=== PATIENT | female | born 2000 | race Caucasian/White ===

== ENCOUNTER 2023-04-17 17:33 | Emergency (ER) | payer OTHER, SELFPAY ==
[2023-04-17 17:36] VITALS: BP 139/75; PULSE 84; RESP 19; TEMP 36.9; O2SAT 99; BMI 39.0
--- NOTE | 2023-04-17 18:57 | EDS_ITS ---
HPI History of Present Illness Chief Complaint: Other, Pain/Inj Detail of Chief Complaint: She was sent in for CAT scan of her neck. Informant: patient Onset/Context/Timing Onset: - (Patient had throat pain and swelling that started last week.) Context: Sudden Onset Timing: Continuous Quality: No longer has swelling. Location: Nonspecific cervical lymphadenopathy. Current Severity: Gone Maximum Severity: Moderate Worsened by: Nothing Relieved by: Nothing specific per patient Associated Symptoms Associated Symptoms: Did have a hoarse voice Narrative Narrative: Patient is a 22-year-old female who was sent to the ER for CAT scan of her neck. Patient scheduled for MRI of her neck. CT that was performed at [facility] was reviewed. The report by radiologist was reviewed. There was nonspecific cervical lymphadenopathy. They were not significant based on size or character. There were more nodes then 1 would expect. She did have a hoarse voice at that time she was placed on steroids. She states a rapid strep was not done. Blood work was done which was all normal. This was confirmed. Patient has no complaints at this time. She does not believe her neck is swollen. Prior similar symptoms: Yes Recent Illness/Hospitalization: Yes PFSH PFSH Allergy/AdvReac Type Severity Reaction Status Date / Time doxycycline AdvReac Upset Verified 04/17/23 17:36 Stomach naproxen AdvReac Angioedema Verified 04/17/23 17:36 no surgical history Social History (Updated 04/17/23 @ 18:[address] Mason Taylor MD) household members: family substance use type: does not use ROS ROS ED Constitutional Constitutional ED: Denies chills, fever(s), subjective, sweats or weight loss Eyes Eyes: Denies blurry vision, change in vision or diplopia ENT ENT ED: Denies ear pain, rhinorrhea or sore throat Cardiovascular Cardiovascular: Denies chest pain or palpitations Respiratory/Chest Respiratory/Chest: Denies cough, dyspnea or dyspnea on exertion Hematologic/Lymphatic Hematologic/Lymphatic: Reports systems reviewed and no addt'l complaints, except as documented Allergic/Immunologic Allergic/Immunologic ED: Denies mouth swelling, tongue swelling or urticaria EXAM Physical Exam Const Vital Signs: 04/17/23 17:36 Temperature 98.5 F Temperature Source Temporal Pulse Rate 84 Respiratory Rate 19 H Blood Pressure 139/75 H Blood Pressure Mean 96 Pulse Ox 99 Oxygen Delivery Method Room Air Positive well nourished, well developed and obese General Appearance ED: well developed and NAD; Negative for cyanotic, diaphoretic or pallor Nutritional Appearance: obese HEENT Reports moist mucous membranes HEENT Narrative: Posterior pharynx out erythema or exudate. Uvula is midline. There is no evidence of angioedema. There is no deviation with protrusion. Eyes PERRL and EOMs intact bilaterally General Eye ED: Negative for pale conjunctiva or scleral icterus Neck no lymphadenopathy, supple and no JVD Neck Narrative: Trachea is midline. There is no inspiratory stridor. There is no dysphonia. There is no carotid bruits. There is no palpable nodes. Resp normal respiratory effort Cardio regular rate and regular rhythm Neuro oriented x3, CN's II-XII intact bilaterally and no sensory deficits noted Sensorium / Orientation: alert Psych mental status grossly normal Skin no rashes or lesions noted, no wounds and skin turgor normal General Skin Exam: elasticity normal; Negative for jaundice or pallor MDM MDM MDM Narrative Medical decision making narrative: Patient had a CT of her neck 9 days ago. Because of concern for radiation of thyroid and an unremarkable exam this was not repeated. Patient's vitals are unremarkable. Patient is scheduled for an outpatient MRI. There is no indication for emergent CAT scan. Patient was informed of this. Patient be discharged home. History & Record Review Additional record(s) reviewed:: Prior outpatient record and Prior labs Discharge Plan Triage Chief Complaint: Other, Pain/Inj ED Provider: Mason Taylor Dx/Rx/DC Orders Clinical Impression: Cervical lymphadenopathy Instructions: Lymphadenopathy Primary Care Provider: Francisco Brown Referrals: Francisco Brown, [Primary Care Provider] - Disposition Disposition: Home, Self Care
== END 2023-04-17 19:30 | disposition home or self-care (01) ==
PROVIDERS: Emergency Provider Emergency Medicine; PCP Student in an Organized Health Care Education/Training Program; Visit Provider Emergency Medicine
DX: R59.0 Localized enlarged lymph nodes (principal)
CPT/HCPCS: 99282